=== PATIENT | male | born 1995 | race African-American/Black ===

== ENCOUNTER 2021-11-25 18:27 | Emergency (ER) | payer SELFPAY ==
[~2021-11-25] VITALS: Ht 172.7 cm; Wt 90.9 kg
[2021-11-25 19:47] VITALS: BP 134/84
== END 2021-11-25 21:54 | disposition left against medical advice (07) ==
LOC: ER 18:27 → EDUNIT# 18:27 → EDBD 18:27 → ER 21:51
DX: M79.671 Pain in right foot (principal); Z53.21 Procedure and treatment not carried out due to patient leaving prior to being seen by health care provider; V48.9XXA Unspecified car occupant injured in noncollision transport accident in traffic accident, initial encounter; Y93.89 Activity, other specified; Y92.89 Other specified places as the place of occurrence of the external cause; Y99.8 Other external cause status